=== PATIENT | female | born 2000 ===

== ENCOUNTER 2020-08-23 20:27 | Emergency (ER) | payer OTHER ==
[2020-08-24 05:56] LABS: SARS-CoV-2 PCR by NAA DETECTED (NotDetected)
== END 2020-08-23 23:18 | disposition home or self-care (01) ==
LOC: ERS 20:27
DX: U07.1 COVID-19 (principal); E28.2 Polycystic ovarian syndrome
CPT/HCPCS: 71045; 87635; U0003; U0005